=== PATIENT | female | born 1950 ===

== ENCOUNTER 2022-04-21 05:54 | Day surgery (SDC) | payer OTHER ==
[~2022-04-21 05:54] MED LIST: D3 + K2 DOTS 11 EACH PO; GABAPENTIN300 M2 PO; GLIMEPIRIDE1 M1 PO; METHOTREXATE2.5 MG PO; NABUMETONE750 MG PO; SYNTHROID75 MCG PO; ZIPSOR25 MG PO; ZOCOR40 MG PO
[2022-04-21] MEDS ORDERED: ULTRACET PO (09:45)
[2022-04-21] MEDS ORDERED: MACROBID 100 M100 MG PO (09:45)
== END 2022-04-21 12:35 | disposition home or self-care (01) ==
LOC: CIR.AMB 05:54
PROVIDERS: ATTEND Obstetrics & Gynecology Gynecology
DX: N81.11 Cystocele, midline (principal); N81.5 Vaginal enterocele; Z20.822 Contact with and (suspected) exposure to COVID-19; E11.9 Type 2 diabetes mellitus without complications; M19.90 Unspecified osteoarthritis, unspecified site; I87.2 Venous insufficiency (chronic) (peripheral)